=== PATIENT | male | born 1975 | race Caucasian/White ===

== ENCOUNTER 2017-12-12 09:34 | Emergency (ER) | payer SELFPAY ==
[2017-12-12 10:15] VITALS: BP 102/58; BMI 25.1
[2017-12-12] MEDS ORDERED: ACETAMINOPHEN 160 MG/5 ML *Children Solution PO ONE (10:15)
--- NOTE | 2017-12-12 12:08 | PDOC ---
History of Present Illness - General Chief Complaint: Cold Symptoms Stated Complaint: FLU LIKE SYMPTOMS Time Seen by Provider: 12/12/17 12:07 History Source: Patient Exam Limitations: No Limitations - History of Present Illness Initial Comments: CHIEF COMPLAINT: 42 y/o febrile male with no significant PMH c/o body aches, fever, cough, sore throat, runny nose for the past 1.5 days. HISTORY OF PRESENT ILLNESS: The patient denies n/v/d, CP, SOB, productive cough , recent sick contacts. He did not get the flu shot this year. Vital signs on arrival are notable for pulse of 95 secondary to temp of 101.6. REVIEW OF SYSTEMS: GENERAL/CONSTITUTIONAL:+fever/chills. +body aches. No weakness. No weight change. HEAD, EYES, EARS, NOSE AND THROAT: No change in vision. No ear pain or discharge. + sore throat. +runny nose CARDIOVASCULAR: No chest pain or shortness of breath. RESPIRATORY: +dry cough. No wheezing or hemoptysis. GASTROINTESTINAL: No abd pain, nausea, vomiting, diarrhea. GENITOURINARY: No dysuria, frequency, or change in urination. MUSCULOSKELETAL: No joint or muscle swelling or pain. No neck or back pain. SKIN: No rash or easy bruising. NEUROLOGIC: No headache, vertigo, loss of consciousness, or loss of sensation. PHYSICAL EXAM: GENERAL: The patient is awake, alert, and fully oriented, in no acute distress, non toxic but ill appearing. HEAD: Normal with no signs of trauma. ENT: Pupils equal, round and reactive to light, extraocular movements intact, sclera anicteric, conjunctiva clear. Watery eyes. Erythematous nose. Nasal congestion. LUNGS: Clear to auscultation bilaterally. Normal excursion. No respiratory distress or use of accessory muscles. CV: RRR, S1/S2, no MRG. Cap refill < 2 sec. ABDOMEN: Soft, non-distended, non-tender even to deep palpation, no hepatomegaly or splenomegaly, no masses. EXTREMITIES: Normal range of motion, no edema. NEUROLOGICAL: Normal speech, normal gait. CN II-XII grossly intact. PSYCH: Normal mood, normal affect. SKIN: Warm, dry, normal turgor, no rashes or lesions noted. Past History - Past Medical History Allergies/Adverse Reactions: Allergies Allergy/AdvReac Type Severity Reaction Status Date / Time No Known Allergies Allergy Verified 12/12/17 10:15 Home Medications: Ambulatory Orders NK [No Known Home Medication] 12/12/17 COPD: No - Suicide/Smoking/Psychosocial Hx Smoking History: Never smoked Have you smoked in the past 12 months: No Information on smoking cessation initiated: No Hx Alcohol Use: No Drug/Substance Use Hx: No Substance Use Type: None *Physical Exam - Vital Signs Last Vital Signs Temp Pulse Resp BP Pulse Ox 101.6 F H 95 H 18 102/58 100 12/12/17 10:13 12/12/17 10:13 12/12/17 10:13 12/12/17 10:13 12/12/17 10:13 ED Treatment Course - Medications Given in the ED: ED Medications Discontinued Medications Generic Name Dose Route Start Last Admin Trade Name Fer PRN Reason Stop Dose Admin Acetaminophen 975 mg 12/12/17 10:15 12/12/17 10:16 Tylenol *Children Solution* - PO 12/12/17 10:16 975 mg NOW ONE Administration Medical Decision Making - Medical Decision Making A/P: 42 y/o male with flu symptoms. Was given tylenol in triage. Flu swab pending. Influenza B - positive Tamiflu will be sent to patient's pharmacy. Instructed him to take 650mg of tylenol every 4 hours for fever, drink plenty of fluids, get lots of rest and return to the ER with any worsening or concerning symptoms. The patient verbalizes understanding of all instructions, has no further questions and is awaiting discharge. *DC/Admit/Observation/Transfer Diagnosis at time of Disposition: Influenza B - Discharge Dispostion Disposition: HOME Condition at time of disposition: Improved - Referrals - Patient Instructions Printed Discharge Instructions: DI for Influenza -- Adult Additional Instructions: Discharge Instructions: -You have the flu -A prescription has been sent to your pharmacy -Please take 650mg of over the counter tylenol every 4 hours for fever -DRink plenty of fluids -Get lots of rest -Return to the ER with any worsening or concerning symptoms - Post Discharge Activity Forms/Work/School Notes: Back to Work
[2017-12-12 12:44] VITALS: PULSE 92; TEMP 101.3
== END 2017-12-12 12:49 | disposition home or self-care (01) ==
LOC: JERFT 09:34
DX: J10.1 Influenza due to other identified influenza virus with other respiratory manifestations (principal)
CPT/HCPCS: 87804; 99281-25

== ENCOUNTER 2017-12-12 20:51 | Emergency (ER) | payer OTHER ==
[2017-12-12 21:44] VITALS: BMI 25.1
[2017-12-12] MEDS ORDERED: ONDANSETRON *ODT* 4 MG TABLET SL ONE (21:44)
--- NOTE | 2017-12-12 21:44 | PDOC ---
Rapid Medical Evaluation Chief Complaint: Weakness Time Seen by Provider: 12/12/17 21:42 Medical Evaluation: Allergies Allergy/AdvReac Type Severity Reaction Status Date / Time No Known Allergies Allergy Verified 12/12/17 10:15 12/12/17 21:42 The patient presents with a chief complaint of: Diagnosed with flu today, febrile, unable to take in PO. Dizzy. I have performed a brief in-person evaluation of this patient. Pertinent physical exam findings: vss, Tachycardic, Abdomen is soft, nontender , nondistended. Lungs clear. I have ordered the following: Zofran 4 mg. The patient will proceed to the ED for further evaluation. Discharge Disposition - Diagnosis Influenza B - Referrals - Patient Instructions - Post Discharge Activity
[2017-12-12] MEDS ORDERED: SODIUM CHLORIDE 0.9% 500 ML INFUS.BAG IV ONE ×2 (21:48→23:06)
[2017-12-12] MEDS ORDERED: ACETAMINOPHEN 1000 MG/100 ML VIAL (NON FORMULARY) IVPB ONE (22:04)
[2017-12-12 22:09] LABS: BASO % 0.1 % (0-2.0); HEMATOCRIT 43.2 % (35.4-49); HEMOGLOBIN 14.1 GM/dL (11.7-16.9); MCH 28.2 pg (25.7-33.7); MCHC 32.7 g/dl (32.0-35.9); MEAN CELL VOLUME 86.3 fl (80-96); MEAN PLT VOLUME 9.3 fl (7.5-11.1); MONO % 11.5 % (3.8-10.2); NEUT % 80.4 % (42.8-82.8); PLATELET COUNT 134 K/MM3 (134-434); RDW 13.5 % (11.9-15.9); WHITE BLOOD COUNT 5.3 K/mm3 (4.0-10.0)
[2017-12-12] MEDS ORDERED: ACETAMINOPHEN INJECTION 100 ML IVPB ONE (22:19)
[2017-12-12] MEDS ORDERED: ONDANSETRON *ODT* 4 MG TABLET ONE (22:19)
--- NOTE | 2017-12-12 22:30 | PDOC ---
Attending Attestation - Resident Resident Name: Emilie Elizabeth - ED Attending Attestation I have performed the following: I have examined & evaluated the patient, The case was reviewed & discussed with the resident, I agree w/resident's findings & plan, Exceptions are as noted - HPI HPI: 12/12/17 22:29 skewnder 42 yo male p/e fever and cough and found influenza positive - Physicial Exam PE: 12/12/17 22:30 wnwd 42 yo male head ncat neck supple lungs cta b/l cvs tachycardia abd soft,nontender ext no e/c/c neuro axox3 psych appropriate - Medical Decision Making 12/12/17 22:32 pt to receive zofran IVF, tylenol
[2017-12-12 22:39] LABS: ALBUMIN 3.6 g/dl (3.4-5.0); ALK PHOS 53 U/L (45-117); ANION GAP 9 (8-16); BILIRUBIN,TOTAL 0.3 mg/dL (0.2-1.0); BLOOD UREA NITROGEN 12 mg/dL (7-18); CALCIUM 8.3 mg/dL (8.5-10.1); CHLORIDE 101 mmol/L (98-107); CO2 25 mmol/L (21-32); GLUCOSE,RANDOM 131 mg/dL (74-106); SGOT/AST 18 U/L (15-37); SGPT/ALT 23 U/L (12-78); SODIUM 135 mmol/L (136-145); TOT PROT 7.4 g/dl (6.4-8.2)
--- NOTE | 2017-12-12 23:13 | PDOC ---
History of Present Illness - General Chief Complaint: Weakness Stated Complaint: COLD SYMPTOMS Time Seen by Provider: 12/12/17 21:42 History Source: Patient - History of Present Illness Initial Comments: 12/12/17 23:07 Patient is a 42 y.o. male with no PMH who presents to the ED c/o fever, chills and generalized weakness. Patient was evaluated in triage today at which time he tested positive for Influenza B. Patient was discharged with Tamiflu and supportive care however returned to ED following multiple episodes of emesis and generalized body aches and fevers of 101. Patient states he was unable to PO tolerate Tamiflu or Tylenol. NKDA Surgical: denies PMD: Out of state Past History - Past Medical History Allergies/Adverse Reactions: Allergies Allergy/AdvReac Type Severity Reaction Status Date / Time No Known Allergies Allergy Verified 12/12/17 21:44 Home Medications: Ambulatory Orders Oseltamivir Phosphate [Tamiflu -] 75 mg PO BID #10 capsule 12/12/17 Ondansetron HCl [Zofran] 4 mg PO BID #10 tablet 12/13/17 COPD: No - Suicide/Smoking/Psychosocial Hx Smoking History: Never smoked Have you smoked in the past 12 months: No Information on smoking cessation initiated: No Hx Alcohol Use: No Drug/Substance Use Hx: No Substance Use Type: None Review of Systems - Review of Systems Constitutional: No: Chills, Fever Respiratory: No: Shortness of Breath Cardiac (ROS): No: Chest Pain ABD/GI: No: Constipated, Diarrhea, Nausea, Vomiting : No: Burning, Dysuria *Physical Exam - Vital Signs Last Vital Signs Temp Pulse Resp BP Pulse Ox 101.2 F H 100 H 18 117/66 100 12/12/17 21:42 12/12/17 21:42 12/12/17 21:42 12/12/17 21:42 12/12/17 21:42 - Physical Exam General Appearance: Yes: Nourished, Appropriately Dressed HEENT: positive: EOMI, [place] Neck: positive: Trachea midline, Supple Respiratory/Chest: positive: Lungs Clear Cardiovascular: positive: S1, S2 Gastrointestinal/Abdominal: positive: Normal Bowel Sounds, Soft Extremity: positive: Normal Capillary Refill, Normal Inspection Integumentary: positive: Normal Color, Dry, Warm, Clammy, Diaphoresis. 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, Fully Oriented, Alert ED Treatment Course - LABORATORY CBC & Chemistry Diagram: 12/12/17 22:00 12/12/17 22:00 - ADDITIONAL ORDERS Additional order review: Laboratory Results 12/12/17 22:00 Sodium 135 L Potassium 4.0 Chloride 101 Carbon Dioxide 25 Anion Gap 9 BUN 12 Creatinine 1.0 Creat Clearance w eGFR > 60 Random Glucose 131 H Calcium 8.3 L Total Bilirubin 0.3 AST 18 ALT 23 Alkaline Phosphatase 53 Total Protein 7.4 Albumin 3.6 12/12/17 22:00 RBC 5.00 MCV 86.3 MCHC 32.7 RDW 13.5 MPV 9.3 Neutrophils % 80.4 Lymphocytes % 8.0 Monocytes % 11.5 H Eosinophils % 0.0 Basophils % 0.1 - Medications Given in the ED: ED Medications Discontinued Medications Generic Name Dose Route Start Last Admin Trade Name Freq PRN Reason Stop Dose Admin Acetaminophen 1,000 mg 12/12/17 22:04 12/12/17 22:27 Ofirmev Injection - IVPB 12/12/17 22:05 1,000 mg ONCE ONE Administration Ondansetron HCl 4 mg 12/12/17 21:44 12/12/17 22:28 Zofran Odt - SL 12/12/17 21:45 4 mg ONCE ONE Administration Sodium Chloride 1,000 ml 12/12/17 21:48 12/12/17 22:14 Normal Saline - IV 12/12/17 21:49 1,000 ml ONCE ONE Administration Medical Decision Making - Medical Decision Making 12/12/17 23:55 Patient with a recent Influenza B test presents with fevers, repeated emesis. Patient was hydrated with IV NS x2. Counseled on supportive care including Tylenol for fever + increased PO fluid intake. Outpatient Zofran prescribed. Patient signed out to Dr. Haywood (Attending). *DC/Admit/Observation/Transfer Diagnosis at time of Disposition: Influenza B, Influenza - Discharge Dispostion Disposition: HOME Condition at time of disposition: Good Admit: No - Prescriptions Prescriptions: Ondansetron HCl [Zofran] 4 mg PO BID #10 tablet - Referrals - Patient Instructions Printed Discharge Instructions: Influenza Additional Instructions: An outpatient prescription for Zofran has been called to your pharmacy. Please continue to take the Tamiflu as prescribed and increase your fluid intake to 2- 3 L daily. You can take Tylenol or Motrin for your fevers. Return to the Emergency Department for any new/worsening/concerning symptoms. - Post Discharge Activity
[2017-12-13 00:47] VITALS: BP 100/69; PULSE 85; TEMP 98.5
[2017-12-13 01:21] LABS: URINE APPEARANCE CLEAR; URINE BILIRUBIN NEGATIVE (NEGATIVE); URINE BLOOD NEGATIVE (NEGATIVE); URINE COLOR YELLOW; URINE GLUCOSE (UA) NEGATIVE (NEGATIVE); URINE KETONE 2+ (NEGATIVE); URINE LEUK ESTERASE NEGATIVE (NEGATIVE); URINE NITRITE NEGATIVE (NEGATIVE); URINE UROBILINOGEN NEGATIVE mg/dL (0.2-1.0)
[2017-12-13 02:06] LABS: URINE PROTEIN 1+ (NEGATIVE)
[2017-12-13 02:20] LABS: URINE MUCUS RARE
== END 2017-12-13 00:44 | disposition home or self-care (01) ==
LOC: JER 20:51
PROC: 3E033NZ Introduction of Analgesics, Hypnotics, Sedatives into Peripheral Vein, Percutaneous Approach (ICD-10-PCS; principal; 2017-12-12)
DX: J10.1 Influenza due to other identified influenza virus with other respiratory manifestations (principal)
CPT/HCPCS: 36415; 80053; 81003; 81015; 83605; 85025; 99283-25

== ENCOUNTER 2019-02-14 12:37 | Emergency (ER) | payer OTHER ==
[2019-02-14 12:45] VITALS: BP 110/65; PULSE 94; TEMP 98; BMI 25.8
--- NOTE | 2019-02-14 15:22 | PDOC ---
History of Present Illness - General Chief Complaint: Nausea/Vomiting Stated Complaint: FEVER/VOMITING Time Seen by Provider: 02/14/19 15:22 - History of Present Illness Initial Comments: 02/14/19 15:45 Mr. Keyes is a 43 yo male w/ no significant pmh who presents for evaluation of 1 day history of nausea and vomiting. Patient reports he was at his baseline when he went to bed last night however has had significant nausea with vomiting up of his dinner from last night. Patient reports his partner ate the same food however and has not been sick. Patient also complains of diffuse mild body aches and says this feels similar to last year when he had the flu. Had a normal BM this morning. Believes he may have had fever earlier today. The patient denies chest pain, shortness of breath, headache and dizziness. Denies chills, diarrhea and constipation. Denies dysuria, frequency, urgency and hematuria. Past History - Past Medical History Allergies/Adverse Reactions: Allergies Allergy/AdvReac Type Severity Reaction Status Date / Time No Known Allergies Allergy Verified 02/14/19 12:43 Home Medications: Ambulatory Orders Oseltamivir Phosphate [Tamiflu -] 75 mg PO BID #10 capsule 12/12/17 Ondansetron HCl [Zofran] 4 mg PO BID #10 tablet 12/13/17 Ondansetron [Zofran Odt -] 4 mg GT TID PRN #9 tab.rapdis 02/14/19 COPD: No - Suicide/Smoking/Psychosocial Hx Smoking History: Never smoked Have you smoked in the past 12 months: No Hx Alcohol Use: No Drug/Substance Use Hx: No Substance Use Type: None Review of Systems - Review of Systems Comments:: 02/14/19 15:48 GENERAL/CONSTITUTIONAL: +Subjective fever. No chills. No weakness. HEAD, EYES, EARS, NOSE AND THROAT: No change in vision. No ear pain or discharge. No sore throat. CARDIOVASCULAR: No chest pain or shortness of breath RESPIRATORY: No cough, wheezing, or hemoptysis. GASTROINTESTINAL: +N/V as described. No diarrhea or constipation. GENITOURINARY: No dysuria, frequency, or change in urination. MUSCULOSKELETAL: +Mild diffuse body aches as reported. SKIN: No rash NEUROLOGIC: No headache, vertigo, loss of consciousness, or change in strength/ sensation. ENDOCRINE: No increased thirst. No abnormal weight change HEMATOLOGIC/LYMPHATIC: No anemia, easy bleeding, or history of blood clots. ALLERGIC/IMMUNOLOGIC: No hives or skin allergy. *Physical Exam - Vital Signs Last Vital Signs Temp Pulse Resp BP Pulse Ox 98 F 94 H 18 110/65 96 02/14/19 12:43 02/14/19 12:43 02/14/19 12:43 02/14/19 12:43 02/14/19 12:43 - Physical Exam Comments: 02/14/19 17:37 GENERAL: Awake, alert, and fully oriented, in no acute distress HEAD: No signs of trauma, normocephalic, atraumatic EYES: PERRLA, EOMI, sclera anicteric, conjunctiva clear ENT: Auricles normal inspection, hearing grossly normal, nares patent, oropharynx clear without exudates. Moist mucosa NECK: Normal ROM, supple, no lymphadenopathy, JVD, or masses LUNGS: No distress, speaks full sentences, clear to auscultation bilaterally HEART: Regular rate and rhythm, normal S1 and S2, no murmurs, rubs or gallops, peripheral pulses normal and equal bilaterally. ABDOMEN: +Mild diffuse tenderness, soft, normoactive bowel sounds. No guarding, no rebound. No masses EXTREMITIES: Normal inspection, Normal range of motion, no edema. No clubbing or cyanosis. NEUROLOGICAL: Cranial nerves II through XII grossly intact. Normal speech, normal gait, no focal sensorimotor deficits SKIN: Warm, Dry, normal turgor, no rashes or lesions noted. ED Treatment Course - LABORATORY CBC & Chemistry Diagram: 02/14/19 15:40 02/14/19 15:40 Medical Decision Making - Medical Decision Making 02/14/19 17:37 Mr. Keyes is a 43 yo male w/ pmh as described who presents for evaluation of 1 day history of N/V as described concerning for gastritis vs. food poisoning vs. other acute abdominal process. Patient evaluated with labs as below as well as influenza for r/o viral illness (negative). Patient given zofran, fluids, IV tylenol with improvement of symptoms. Labs grossly wnl. Patient tolerated PO in ER. No concern for acute process at this time. Discharging to home. Laboratory Results - last 24 hr 02/14/19 02/14/19 02/14/19 15:40 15:40 15:40 WBC 8.4 RBC 5.08 Hgb 14.3 Hct 44.1 MCV 86.9 MCH 28.2 MCHC 32.4 RDW 13.3 Plt Count 160 MPV 9.2 Absolute Neuts (auto) 7.6 Neutrophils % 91.2 H Neutrophils % (Manual) 90.0 H Band Neutrophils % 2.0 Lymphocytes % 3.7 L D Lymphocytes % (Manual) 3.0 L Monocytes % 4.4 Monocytes % (Manual) 3 L Eosinophils % 0.3 D Basophils % 0.4 D Nucleated RBC % 0 Platelet Estimate Adequate Sodium 139 Potassium 3.9 Chloride 106 Carbon Dioxide 24 Anion Gap 10 BUN 22 H Creatinine 0.9 Creat Clearance w eGFR 91.25 Random Glucose 106 Calcium 8.8 Total Bilirubin 0.5 AST 15 ALT 24 Alkaline Phosphatase 60 Total Protein 7.2 Albumin 3.8 Influenza A (Rapid) Negative Influenza B (Rapid) Negative *DC/Admit/Observation/Transfer Diagnosis at time of Disposition: Nausea and vomiting Qualifiers: Vomiting type: unspecified Vomiting Intractability: non-intractable Qualified Code(s): R11.2 - Nausea with vomiting, unspecified - Discharge Dispostion Disposition: HOME - Prescriptions Prescriptions: Ondansetron [Zofran Odt -] 4 mg GT TID PRN #9 tab.rapdis PRN Reason: Nausea - Referrals - Patient Instructions Printed Discharge Instructions: DI for Vomiting -- Adult Additional Instructions: You were evaluated today in the ER for your nausea and vomiting. We evaluated you with labs as well as for influenza and found no concerning findings. Your symptoms improved following anti-nausea medication and fluids. We do not believe anything emergent is occurring at this time and you are safe for discharge home. Please follow-up with primary care provider later this week for further evaluation. Return to ER if any further difficulty tolerating PO, increase in pain, fever, chills, or other concerning symptoms. - Post Discharge Activity Forms/Work/School Notes: Back to Work
[2019-02-14] MEDS ORDERED: SODIUM CHLORIDE 1,000 ML IV STA (15:32)
[2019-02-14] MEDS ORDERED: ONDANSETRON 4 MG/2 ML VIAL IVPUSH ONE (15:32)
[2019-02-14] MEDS ORDERED: ACETAMINOPHEN 1000 MG/100 ML VIAL (NON FORMULARY) IVPB ONE (15:45)
[2019-02-14] MEDS ORDERED: ONDANSETRON 4 MG/2 ML VIAL ONE (15:51)
[2019-02-14] MEDS ORDERED: ACETAMINOPHEN INJECTION 100 ML IVPB ONE (15:52)
[2019-02-14 15:56] LABS: BASO % 0.4 % (0-2.0); EOS % 0.3 % (0-4.5); HEMATOCRIT 44.1 % (35.4-49); HEMOGLOBIN 14.3 GM/dL (11.7-16.9); LYMPH % 3.7 % (8-40); MCH 28.2 pg (25.7-33.7); MCHC 32.4 g/dl (32.0-35.9); MEAN CELL VOLUME 86.9 fl (80-96); MEAN PLT VOLUME 9.2 fl (7.5-11.1); MONO % 4.4 % (3.8-10.2); NEUT % 91.2 % (42.8-82.8); PLATELET COUNT 160 K/MM3 (134-434); RBC 5.08 M/mm3 (4.00-5.60); RDW 13.3 % (11.9-15.9); WHITE BLOOD COUNT 8.4 K/mm3 (4.0-10.0)
[2019-02-14 16:15] LABS: ALBUMIN 3.8 g/dl (3.4-5.0); ALK PHOS 60 U/L (45-117); ANION GAP 10 MMOL/L (8-16); BILIRUBIN,TOTAL 0.5 mg/dL (0.2-1); BLOOD UREA NITROGEN 22 mg/dL (7-18); CALCIUM 8.8 mg/dL (8.5-10.1); CHLORIDE 106 mmol/L (98-107); CO2 24 mmol/L (21-32); CREATININE 0.9 mg/dL (0.55-1.3); GLUCOSE,RANDOM 106 mg/dL (74-106); POTASSIUM 3.9 mmol/L (3.5-5.1); SGOT/AST 15 U/L (15-37); SGPT/ALT 24 U/L (13-61); SODIUM 139 mmol/L (136-145); TOT PROT 7.2 g/dl (6.4-8.2)
[2019-02-14 17:34] LABS: PLATELET ESTIMATE ADEQUATE
== END 2019-02-14 18:15 | disposition home or self-care (01) ==
LOC: JER 12:37
PROC: 3E033NZ Introduction of Analgesics, Hypnotics, Sedatives into Peripheral Vein, Percutaneous Approach (ICD-10-PCS; principal; 2019-02-14)
PROC: 3E033GC Introduction of Other Therapeutic Substance into Peripheral Vein, Percutaneous Approach (ICD-10-PCS; 2019-02-14)
PROC: 3E0337Z Introduction of Electrolytic and Water Balance Substance into Peripheral Vein, Percutaneous Approach (ICD-10-PCS; 2019-02-14)
DX: R11.2 Nausea with vomiting, unspecified (principal)
CPT/HCPCS: 36415; 80053; 85025; 87804; 96361; 96374; 96375; 99282-25; J0131; J7030

== ENCOUNTER 2022-02-26 16:07 | Emergency (ER) | payer OTHER ==
[2022-02-26 16:14] VITALS: BP 104/72; PULSE 86; TEMP 97.8; BMI 25.0
[2022-02-26] MEDS ORDERED: ONDANSETRON 4 MG/2 ML VIAL IVPUSH ONE (18:22)
[2022-02-26] MEDS ORDERED: ACETAMINOPHEN 1000 MG/100 ML BAG IVPB ONE (18:22)
[2022-02-26] MEDS ORDERED: SODIUM CHLORIDE 0.9% 500 ML INFUS.BAG IV ONE ×2 (18:22→18:23)
[2022-02-26] MEDS ORDERED: KETOROLAC TROMETHAMINE 30 MG/1 ML VIAL IVPB ONE (18:22)
[2022-02-26] MEDS ORDERED: KETOROLAC TROMETHAMINE 30 MG/1 ML VIAL ONE (18:36)
[2022-02-26] MEDS ORDERED: ACETAMINOPHEN INJECTION 100 ML IVPB ONE (18:37)
[2022-02-26] MEDS ORDERED: ONDANSETRON 4 MG/2 ML VIAL ONE (18:55)
[2022-02-26 19:16] LABS: BASO % 0.4 % (0-2.0); EOS % 0.1 % (0-4.5); HEMATOCRIT 40.4 % (35.4-49); HEMOGLOBIN 13.1 GM/dL (11.7-16.9); LYMPH % 13.9 % (8-40); MCH 27.6 pg (25.7-33.7); MCHC 32.3 g/dl (32.0-35.9); MEAN CELL VOLUME 85.5 fl (80-96); MEAN PLT VOLUME 8.6 fl (7.5-11.1); MONO % 12.9 % (3.8-10.2); NEUT % 72.7 % (42.8-82.8); PLATELET COUNT 167 10^3/uL (134-434); RBC 4.72 M/mm3 (4.00-5.60); WHITE BLOOD COUNT 6.5 K/mm3 (4.0-10.0)
[2022-02-26 19:34] LABS: ALBUMIN 3.8 g/dl (3.4-5.0); BLOOD UREA NITROGEN 14.5 mg/dL (7-18)
[2022-02-26 19:36] LABS: CREATININE 1.1 mg/dL (0.55-1.3)
[2022-02-26 19:38] LABS: BILIRUBIN,TOTAL 0.3 mg/dL (0.2-1); TOT PROT 7.1 g/dl (6.4-8.2)
== END 2022-02-26 22:07 | disposition home or self-care (01) ==
LOC: JER 16:07
PROC: 3E033GC Introduction of Other Therapeutic Substance into Peripheral Vein, Percutaneous Approach (ICD-10-PCS; principal; 2022-02-26)
DX: U07.1 COVID-19 (principal)
CPT/HCPCS: 36415; 80053; 85025; 96374; 96375; 99284-25

== ENCOUNTER 2023-03-22 08:34 | Emergency (ER) | payer BC, OTHER ==
[2023-03-22 08:52] VITALS: TEMP 97.7; BMI 26.6
[2023-03-22] MEDS ORDERED: FLUORESCEIN NA 1 EA STRIP ONE (10:48)
[2023-03-22] MEDS ORDERED: TETRACAINE 0.5% OPHTH SOLN 2 ML BOTTLE ONE (10:49)
[2023-03-22 13:33] VITALS: BP 117/71; PULSE 64; RESP 20
== END 2023-03-22 13:34 | disposition home or self-care (01) ==
LOC: JER 08:34
DX: H53.8 Other visual disturbances (principal)
CPT/HCPCS: 99285-25

== ENCOUNTER 2023-07-28 07:14 | Emergency (ER) | payer BC, OTHER ==
[2023-07-28 07:38] VITALS: BP 105/60; PULSE 91; RESP 20; TEMP 98.1; BMI 26.6
[2023-07-28] MEDS ORDERED: ONDANSETRON 4 MG/2 ML VIAL IVPUSH ONE ×2 (07:43→10:25)
[2023-07-28] MEDS ORDERED: ACETAMINOPHEN 1000 MG/100 ML BAG IVPB ONE (07:43)
[2023-07-28] MEDS ORDERED: SODIUM CHLORIDE 1,000 ML IV STA (07:43)
[2023-07-28] MEDS ORDERED: ACETAMINOPHEN INJECTION 100 ML IVPB ONE (07:46)
[2023-07-28] MEDS ORDERED: ONDANSETRON 4 MG/2 ML VIAL ONE ×2 (07:46→10:31)
[2023-07-28] MEDS ORDERED: FAMOTIDINE 20 MG/50 ML IVPB 20 MG/50 ML MG IVPB ONE ×2 (07:51→08:24)
[2023-07-28] MEDS ORDERED: FAMOTIDINE 10 MG/ML VIAL IVPB ONE (07:51)
[2023-07-28 08:32] LABS: BASO % 0.2 % (0-2.0); EOS % 0.6 % (0-4.5); HEMATOCRIT 48.9 % (35.4-49); LYMPH % 7.4 % (8-40); MCH 28.3 pg (25.7-33.7); MCHC 32.7 g/dl (32.0-35.9); MEAN CELL VOLUME 86.4 fl (80-96); MEAN PLT VOLUME 9.7 fl (7.5-11.1); MONO % 6.7 % (3.8-10.2); NEUT % 85.1 % (42.8-82.8); PLATELET COUNT 211 10^3/uL (134-434); RBC 5.66 M/mm3 (4.00-5.60); RDW 13.4 % (11.9-15.9); WHITE BLOOD COUNT 9.9 K/mm3 (4.0-10.0)
[2023-07-28 08:50] LABS: POTASSIUM 4.2 mmol/L (3.5-5.1)
[2023-07-28 08:53] LABS: ALBUMIN 4.3 g/dl (3.4-5.0); BLOOD UREA NITROGEN 17.4 mg/dL (7-18); CALCIUM 9.8 mg/dL (8.5-10.1)
[2023-07-28 08:54] LABS: MAGNESIUM 1.7 mg/dL (1.8-2.4)
[2023-07-28 08:56] LABS: CREATININE 1.1 mg/dL (0.55-1.3)
[2023-07-28 08:58] LABS: BILIRUBIN,TOTAL 0.6 mg/dL (0.2-1); TOT PROT 8.2 g/dl (6.4-8.2)
[2023-07-28 09:50] LABS: PH,URINE >= 9.0 (5.0-8.0); URINE APPEARANCE CLEAR; URINE BILIRUBIN NEGATIVE (NEGATIVE); URINE COLOR YELLOW; URINE GLUCOSE (UA) NEGATIVE (NEGATIVE); URINE KETONE 1+ (NEGATIVE); URINE LEUK ESTERASE NEGATIVE (NEGATIVE); URINE NITRITE NEGATIVE (NEGATIVE); URINE PROTEIN TRACE (NEGATIVE); URINE UROBILINOGEN 0.2 mg/dL (0.2-1.0)
[2023-07-28] MEDS ORDERED: LACTATED RINGERS SOLUTION 1,000 ML/1,000 ML INFUS.BAG IV STA (10:25)
== END 2023-07-28 11:55 | disposition home or self-care (01) ==
LOC: JER 07:14
PROC: 3E033GC Introduction of Other Therapeutic Substance into Peripheral Vein, Percutaneous Approach (ICD-10-PCS; principal; 2023-07-28)
PROC: 3E033NZ Introduction of Analgesics, Hypnotics, Sedatives into Peripheral Vein, Percutaneous Approach (ICD-10-PCS; 2023-07-28)
PROC: 3E033GC Introduction of Other Therapeutic Substance into Peripheral Vein, Percutaneous Approach (ICD-10-PCS; 2023-07-28)
PROC: 3E033GC Introduction of Other Therapeutic Substance into Peripheral Vein, Percutaneous Approach (ICD-10-PCS; 2023-07-28)
PROC: 3E0337Z Introduction of Electrolytic and Water Balance Substance into Peripheral Vein, Percutaneous Approach (ICD-10-PCS; 2023-07-28)
PROC: 3E0337Z Introduction of Electrolytic and Water Balance Substance into Peripheral Vein, Percutaneous Approach (ICD-10-PCS; 2023-07-28)
DX: R11.2 Nausea with vomiting, unspecified (principal); R10.9 Unspecified abdominal pain; K52.9 Noninfective gastroenteritis and colitis, unspecified; Z20.822 Contact with and (suspected) exposure to COVID-19
CPT/HCPCS: 0241U-QW; 36415; 76705-TC; 80053; 81003; 83690; 83735; 85025; 93005; 93010; 99285-25

== ENCOUNTER 2023-09-13 09:32 | Emergency (ER) | payer BC, OTHER ==
[2023-09-13 09:43] VITALS: BP 134/68; PULSE 80; RESP 20; TEMP 97.8; BMI 25.8
[2023-09-13] MEDS ORDERED: SULFAMETHOXAZOLE/TRIMETHOPRIM 800MG/160MG D.S. TABLET PO ONE (10:16)
[2023-09-13] MEDS ORDERED: SULFAMETHOXAZOLE/TRIMETHOPRIM 800MG/160MG D.S. TABLET ONE (10:28)
[2023-09-13] MEDS ORDERED: IBUPROFEN 600 MG TABLET (FP) PO ONE ×2 (12:08→12:17)
[2023-09-13] MEDS ORDERED: DIPHTH,PERTUSS(ACELL),TET 0.5 ML DISP.SYRIN IM ONE ×2 (12:33→12:37)
== END 2023-09-13 12:56 | disposition short-term general hospital (02) ==
LOC: JERFT 09:32
PROC: 3E0234Z Introduction of Serum, Toxoid and Vaccine into Muscle, Percutaneous Approach (ICD-10-PCS; principal; 2023-09-13)
DX: M79.644 Pain in right finger(s) (principal); R22.31 Localized swelling, mass and lump, right upper limb; L03.011 Cellulitis of right finger
CPT/HCPCS: 73140-TC-RT-FY; 90715; 99285-25